=== PATIENT | female | born 1955 | race African-American/Black ===

== ENCOUNTER 2017-08-03 20:32 | Emergency (ER) | payer SELFPAY ==
[~2017-08-03 20:32] MED LIST: NOVO7030P2 SQ; ZOFR4TAB PO
[2017-08-03 20:46] VITALS: BP 140/87; PULSE 82; RESP 16; TEMP 98.5; O2SAT 98
[2017-08-03] MEDS ORDERED: SODIUM CHLOR 0.9% 1000 ML INJ 1,000 ML IV SCH (20:47)
[2017-08-03 20:49] VITALS: RESP 20; O2SAT 98
--- NOTE | 2017-08-03 20:52 | PD ---
HPI Chief Complaint: Chest Pain Time Seen by Provider: 20:46 Travel History International Travel<30 days: No Contact w/Intl Traveler<30days: No Traveled to known affect area: No History of Present Illness HPI 62-year-old female complains of a chest pain. Patient states that the chest pain started around 3:00 this afternoon. Patient states the pain is sharp pain started in the substernal area with radiation across the chest wall and up the neck and down the arms. Patient denies any coughing congestion. Patient states that the chest pain has been persistent since then. Patient states that she has intermittent nausea vomiting diarrhea with the pain. Patient also complained of epigastric abdominal pain also. Patient denies any fever or chills. Patient denies any history of CAD. Patient has history of diabetes. Patient denies history of hypertension, hyperlipidemia. Patient is a non- smoker. Patient has family history of heart disease. On a scale of 1-10 the pain is an 8. PFSH Past Medical History Diabetes: Yes (INSULIN) Tubal Ligation: Yes Social History Alcohol Use: No Tobacco Use: No Substance Use: No Allergies-Medications (Allergen,Severity, Reaction): Coded Allergies: No Known Allergies (Unverified , 04/10/15) Reported Meds & Prescriptions Reported Meds & Active Scripts Active Reported Zofran (Ondansetron HCl) 4 Mg Tab 4 Mg PO Q6HR PRN Novolin 70-30 Inj (Insulin Human Isoph/Insulin Regular) 1,000 Unit/10 Ml Vial 30 Units SQ DAILY Novolin 70-30 Inj (Insulin Human Isoph/Insulin Regular) 1,000 Unit/10 Ml Vial 15 Units SQ HS Review of Systems General / Constitutional: No: Fever Eyes: No: Visual changes HENT: No: Headaches Cardiovascular: Positive: Chest Pain or Discomfort Respiratory: No: Shortness of Breath Gastrointestinal: Positive: Nausea, Vomiting, Diarrhea, No: Abdominal Pain Genitourinary: No: Dysuria Musculoskeletal: No: Pain Skin: No Rash Neurologic: No: Weakness Psychiatric: No: Depression Endocrine: No: Polydipsia Hematologic/Lymphatic: No: Easy Bruising Physical Exam Narrative GENERAL: Well-nourished, well-developed patient. SKIN: Focused skin assessment warm/dry. HEAD: Normocephalic. EYES: No scleral icterus. No injection or drainage. NECK: Supple, trachea midline. No JVD or lymphadenopathy. CARDIOVASCULAR: Regular rate and rhythm without murmurs, gallops, or rubs. RESPIRATORY: Breath sounds equal bilaterally. No accessory muscle use. GASTROINTESTINAL: Abdomen soft, nondistended. Mild tenderness on palpation epigastric area. No rebound tenderness. No mass. MUSCULOSKELETAL: No cyanosis, or edema. BACK: Nontender without obvious deformity. No CVA tenderness. Neurologic exam normal. Data Data Last Documented VS Vital Signs Date Time Temp Pulse Resp B/P (MAP) Pulse Ox O2 Delivery O2 Flow Rate FiO2 08/03/17 20:49 20 98 08/03/17 20:46 98.5 82 140/87 (104) Orders Orders Electrocardiogram (08/03/17 20:46) Complete Blood Count With Diff (08/03/17 20:46) Comprehensive Metabolic Panel (08/03/17 20:46) Creatine Kinase (Cpk) (08/03/17 20:46) Troponin I (08/03/17 20:46) Prothrombin Time / Inr (Pt) (08/03/17 20:46) Act Partial Throm Time (Ptt) (08/03/17 20:46) Lipase (08/03/17 20:46) Chest, Single Ap (08/03/17 20:46) Iv Access Insert/Monitor (08/03/17 20:46) Ecg Monitoring (08/03/17 20:46) Oximetry (08/03/17 20:46) Ondansetron Inj (Zofran Inj) (08/03/17 21:00) Sodium Chlor 0.9% 1000 Ml Inj (Ns 1000 M (08/03/17 20:47) Famotidine Inj (Pepcid Inj) (08/03/17 21:00) Al-Mag Hy-Si 40-40-4 Mg/Ml Liq (Mag-Al P (08/03/17 21:00) Metoclopramide Inj (Reglan Inj) (08/03/17 21:30) Diphenhydramine Inj (Benadryl Inj) (08/03/17 21:30) Labs Laboratory Tests Test 08/03/17 20:53 White Blood Count 6.8 TH/MM3 Red Blood Count 5.16 MIL/MM3 Hemoglobin 12.1 GM/DL Hematocrit 34.2 % Mean Corpuscular Volume 66.3 FL Mean Corpuscular Hemoglobin 23.5 PG Mean Corpuscular Hemoglobin Concent 35.4 % Red Cell Distribution Width 22.0 % Platelet Count 173 TH/MM3 Mean Platelet Volume 8.3 FL Neutrophils (%) (Auto) 76.2 % Lymphocytes (%) (Auto) 19.5 % Monocytes (%) (Auto) 3.5 % Eosinophils (%) (Auto) 0.5 % Basophils (%) (Auto) 0.3 % Neutrophils # (Auto) 5.2 TH/MM3 Lymphocytes # (Auto) 1.3 TH/MM3 Monocytes # (Auto) 0.2 TH/MM3 Eosinophils # (Auto) 0.0 TH/MM3 Basophils # (Auto) 0.0 TH/MM3 CBC Comment DIFF FINAL Differential Comment Prothrombin Time 10.9 SEC Prothromb Time International Ratio 1.1 RATIO Activated Partial Thromboplast Time 23.8 SEC Blood Urea Nitrogen 12 MG/DL Creatinine 0.90 MG/DL Random Glucose 79 MG/DL Total Protein 8.2 GM/DL Albumin 4.4 GM/DL Calcium Level 9.5 MG/DL Alkaline Phosphatase 114 U/L Aspartate Amino Transf (AST/SGOT) 29 U/L Alanine Aminotransferase (ALT/SGPT) 27 U/L Total Bilirubin 1.0 MG/DL Sodium Level 139 MEQ/L Potassium Level 3.5 MEQ/L Chloride Level 103 MEQ/L Carbon Dioxide Level 26.9 MEQ/L Anion Gap 9 MEQ/L Estimat Glomerular Filtration Rate 77 ML/MIN Total Creatine Kinase 70 U/L Troponin I LESS THAN 0.02 NG/ML Lipase 72 U/L MDM Medical Decision Making Medical Screen Exam Complete: Yes Emergency Medical Condition: Yes Interpretation(s) 2051 PM. EKG show sinus rhythm nonspecific ST-T wave change. Last Impressions Chest X-Ray 08/03/172045 Signed Impressions: Service Date/Time: Thursday, August 03, 2017 20:52 - CONCLUSION: Normal examination. Ralph London MD 21:48 PM. CBC with hemoglobin 12.1 hematocrit 34.2. MCV 66.3. 76 neutrophil. CMP within normal limits. Cardiac enzymes are normal. Differential Diagnosis Differential diagnosis including musculoskeletal, gastritis, angina, MA, PE, pneumothorax. Narrative Course 62-year-old female with chest pain, nausea vomiting diarrhea. Normal saline solution 1 25 cc an hour. Pepcid 20 mg IV. Zofran 4 mg IV. Reglan 10 mg IV. Benadryl 25 mg IV. Maalox 30 cc p.o. Diagnosis Primary Impression: Atypical chest pain Additional Impression: Gastritis Qualified Codes: K29.00 - Acute gastritis without bleeding Patient Instructions: General Instructions Additional Instructions: Take medications as directed. Follow-up with personal physician. 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 Return if worse. Return immediately if increasing chest pain shortness of breath. Med/Other Pt SpecificInfo: Prescription(s) given Scripts Dicyclomine (Bentyl) 10 Mg Cap 10 MG PO TID Y for Bowel Management, #21 CAP 0 Refills Prov: Adalberto Walsh MD 08/03/17 Sucralfate (Carafate) 1 Gram Tab 1 GM PO QID for Ulcer Prevention, #120 TAB 0 Refills On empty stomach Prov: Adalberto Walsh MD 08/03/17 Pantoprazole (Protonix) 40 Mg Tab 40 MG PO DAILY for Reflux, #30 TAB 0 Refills Prov: Adalberto Walsh MD 08/03/17 Ondansetron Odt (Zofran Odt) 4 Mg Tab 4 MG SL Q6HR Y for Nausea/Vomiting, #10 TAB 0 Refills Prov: Adalberto Walsh MD 08/03/17 Promethazine (Phenergan) 25 Mg Tablet 25 MG PO Q6H Y for NAUSEA OR VOMITING, #10 TAB 0 Refills Prov: Adalberto Walsh MD 08/03/17 Disposition: 01 DISCHARGE HOME Condition: Stable Adalberto Walsh MD Aug 03, 2017 20:52
[2017-08-03] MEDS ORDERED: ALUMINUM/MAGNESIUM/SIMETH 30 ML CUP PO ONE (21:00)
[2017-08-03] MEDS ORDERED: ONDANSETRON HCL 4 MG/2 ML VIAL IVP ONE (21:00)
[2017-08-03] MEDS ORDERED: FAMOTIDINE 20 MG/2 ML VIAL IV PUSH ONE (21:00)
--- NOTE | 2017-08-03 21:01 | RADRPT ---
EXAM DATE/TIME: 08/03/2017 20:52 [facility] COMPARISON: CHEST ONE VIEW EMPLOYMED ONLY, February 23, 2015, 11:41. INDICATIONS : Patient complains of chest pain. MEDICAL HISTORY : None. SURGICAL HISTORY : None. ENCOUNTER: Initial ACUITY: 1 day PAIN SCORE: 5/10 LOCATION: chest FINDINGS: A single view of the chest demonstrates the lungs to be symmetrically aerated without evidence of mas s, infiltrate or effusion. The cardiomediastinal contours are unremarkable. Osseous structures are intact. CONCLUSION: Normal examination. Ralph London MD on August 03, 2017 at 21:00 Board Certified Radiologist. This report was verified electronically.
[2017-08-03 21:11] LABS: AUTOMATED NEUTROPHIL # 5.2 TH/MM3 (1.8-7.7); BASOPHIL % 0.3 % (0.0-2.0); EOSINOPHIL % 0.5 % (0.0-4.0); HEMATOCRIT 34.2 % (35.0-46.0); HEMOGLOBIN 12.1 GM/DL (11.6-15.3); LYMPH % 19.5 % (9.0-44.0); LYMPHOCYTE # 1.3 TH/MM3 (1.0-4.8); MEAN CELL VOLUME 66.3 FL (80.0-100.0); MEAN CORPUSCULAR HEMOGLOBIN 23.5 PG (27.0-34.0); MEAN CORPUSCULAR HGB CONC 35.4 % (32.0-36.0); MEAN PLATELET VOLUME 8.3 FL (7.0-11.0); MONO % 3.5 % (0.0-8.0); MONOCYTE # 0.2 TH/MM3 (0-0.9); NEUT % 76.2 % (16.0-70.0); PLATELET COUNT 173 TH/MM3 (150-450); RED BLOOD COUNT 5.16 MIL/MM3 (4.00-5.30); WHITE BLOOD COUNT 6.8 TH/MM3 (4.0-11.0)
[2017-08-03 21:23] LABS: INTERNATIONAL NORMALIZED RATIO 1.1 RATIO; PROTHROMBIN TIME - PATIENT 10.9 SEC (9.8-11.6)
[2017-08-03 21:27] LABS: ALT (GPT) 27 U/L (10-53)
[2017-08-03] MEDS ORDERED: METOCLOPRAMIDE HCL 10 MG/2 ML VIAL IV PUSH ONE (21:30)
[2017-08-03] MEDS ORDERED: diphenhydrAMINE HCL 50 MG/ML VIAL IV PUSH ONE (21:30)
[2017-08-03 21:37] LABS: ALBUMIN 4.4 GM/DL (3.4-5.0); ALKALINE PHOSPHATASE 114 U/L (45-117); AST (GOT) 29 U/L (15-37); BICARBONATE 26.9 MEQ/L (21.0-32.0); BLOOD UREA NITROGEN 12 MG/DL (7-18); CALCIUM 9.5 MG/DL (8.5-10.1); CHLORIDE 103 MEQ/L (98-107); GLOMERULAR FILTRATION RATE 77 ML/MIN (>89); GLUCOSE,RANDOM 79 MG/DL (74-106); SODIUM (NA) 139 MEQ/L (136-145); TOTAL PROTEIN 8.2 GM/DL (6.4-8.2); TROPONIN I LESS THAN 0.02 NG/ML (0.02-0.05)
[2017-08-03] MEDS ORDERED: CARA1TAB6 PO (21:57)
[2017-08-03] MEDS ORDERED: PROT40TA PO (21:57)
[2017-08-03] MEDS ORDERED: PROM25TA10 PO (21:57)
[2017-08-03] MEDS ORDERED: ZOFR4TAB3 SL (21:57)
[2017-08-03] MEDS ORDERED: DICY10 PO (21:57)
--- NOTE | 2017-08-04 09:15 | EKG ---
Date Performed: 08/03/2017 Time Performed: 20:41:36 PTAGE: 62 years EKG: Sinus rhythm NONSPECIFIC T-WAVE ABNORMALITY BORDERLINE ECG NO PREVIOUS TRACING DOCTOR: Clint Hernandez Interpretating Date/Time 08/04/2017 09:14:36
== END 2017-08-03 22:29 | disposition home or self-care (01) ==
LOC: NEPE 20:32
DX: R07.89 Other chest pain (principal); K29.70 Gastritis, unspecified, without bleeding; R94.31 Abnormal electrocardiogram [ECG] [EKG]; E11.9 Type 2 diabetes mellitus without complications; Z79.4 Long term (current) use of insulin
CPT/HCPCS: 71045; 80053; 82550; 83690; 84484; 85025; 85610; 85730; 93005; 96361; 96374; 96375; 99285; J1200; J2405; J2765; J7030